=== PATIENT | female | born 1985 | race Hispanic/Latino ===

== ENCOUNTER 2025-05-18 21:47 | Emergency (ER) | payer SELFPAY ==
[~2025-05-18] VITALS: Ht 167.6 cm; Wt 127.9 kg
--- NOTE | 2025-05-18 21:51 | NUR ---
UA CUP PROVIDED
--- NOTE | 2025-05-18 22:34 | ERN ---
ED Note History of Present Illness Stated Complaint: HEADACHE, N/V Chief Complaint: Headache Time Seen by MD: 21:58 Dictation: This is a 39-year-old overweight female who came into the emergency room complaining of headache nausea vomitings and elevated blood pressure. Patient indicated that she had a fall a few weeks ago and was evaluated at [facility] and was told she had concussion. She also sustained a hematoma and a small laceration requiring audrey. She stated that she has had headaches off and on but since her concussion that aches have been quite frequent especially the last 3 days were intractable in nature. She also reported nausea and vomitings associated with it. No visual changes facial asymmetry slurred speech or any seizure activity. No motor wea kness. Temperature 98.2 heart rate 80 respirations 20 blood pressure 160/100 pulse oximetry 99% on room air She has a known history of hypertension Allergies: Coded Allergies: No Known Allergies (Unverified Allergy, Unknown, 05/18/25) Home Meds Active Scripts Ondansetron (Ondansetron Odt) 4 Mg Tab.rapdis, 4 MG PO Q6HPRN PRN for nausea, #16 TAB 0 Refills Prov:AV FRANZ MD 05/19/25 Butalb/Acetaminophen/Caffeine (Fioricet) 50 Mg-325 Mg-40 Mg Tab, 1 TAB PO [id number] PRN for pain for 5 Days, #10 TAB 0 Refills Prov:AV FRANZ MD 05/19/25 Past Medical History Past Medical History: Hypertension Surgical History: Appendectomy Family History: Negative Social History: Negative LMP: May 11, 2025 RN Note Reviewed/Agreed w/PFSH: Yes Review of System Dictation Constitutional: Negative for fever,chills, and weight loss Eyes: Negative for injury, pain,redness, and discharge ENT: Negative for injury,pain or swelling Cardiovascular: Negative for chest pain, palpitations, and edema Respiratory: Negative for shortness of breath, cough, and wheezing, Abdomen/GI: Negative for abdominal pain, positive for nausea, vomiting, diarrhea, and constipation Back: Negative for injury and pain : Negative for injury, bleeding and discharge MS/Extremity: Negative for injury and deformity Skin: Negative for rash, and discoloration Neuro: Positive for headache, denied weakness, numbness, tingling, and seizure Psych: Negative for suicide ideation, homicidal ideation, and hallucinations Initial Vital Sign VS Vital Signs Date Time Temp Pulse Resp B/P (MAP) Pulse Ox O2 Delivery O2 Flow Rate FiO2 05/18/25 21:48 98.2 80 20 160/100 99 Room Air 05/18/25 22:45 0 21 Physical Exam Dictation General: awake, alert, NAD looks uncomfortable because of the headache mild photophobia Head/Face: Normocephalic, atraumatic Eyes: PERRL, EOMI, vision at baseline ENT: oral cavity clear, TMs clear, no signs of infection Neck: Trachea midline, supple, no nuchal rigidity Cardiovascular: RRR, normal S1/S2, No MRGs, no JVD Respiratory: CTAB, no respiratory distress, No rales or wheezes Abdomen: Soft, non-tender, non-distended, normal bowel sounds, no guarding or rebound. Skin: Warm, dry, normal turgor, no rash MS/Extremity: Pulses equal, no cyanosis, neurovascular intact, FROM Neuro: COAx4, GCS 15, strength 5/5, CN 2-12 intact, normal cerebellar exam, normal gait, Psych: Normal behavior, mood, and affect normal Extremities-trace edema without any palpable cords, Homans sign is negative Results (Laboratory/Radiology) Laboratory/Radiology Laboratory Tests Test 05/19/25 01:10 White Blood Count 10.5 K/uL (4.8-10.8) Red Blood Count 3.76 MIL/uL (4.00-5.50) L Hemoglobin 11.6 g/dL (12.0-16.0) L Hematocrit 33.4 % (36-48) L Mean Corpuscular Volume 88.8 fL (79-99) Mean Corpuscular Hemoglobin 30.9 pg (27.0-33.0) Mean Corpuscular Hemoglobin Concent 34.7 g/dL (32.0-36.0) Red Cell Distribution Width 12.2 % (11.0-15.5) Platelet Count 317 K/uL (130-400) Mean Platelet Volume 8.7 fL (7.5-10.5) Immature Granulocyte % (Auto) 0.4 % (0-1) Neutrophils (%) (Auto) 79.1 % (40.0-77.0) H Lymphocytes (%) (Auto) 16.3 % (21.0-51.0) L Monocytes (%) (Auto) 3.6 % (3.0-13.0) Eosinophils (%) (Auto) 0.1 % (0.0-8.0) Basophils (%) (Auto) 0.5 % (0.0-5.0) Neutrophils # (Auto) 8.3 K/uL (1.8-7.7) H Lymphocytes # (Auto) 1.7 K/uL (1.0-4.8) Monocytes # (Auto) 0.4 K/uL (0.1-1.0) Eosinophils # (Auto) 0.01 K/uL (0.00-0.70) Basophils # (Auto) 0.05 K/uL (0.00-0.20) Absolute Immature Granulocyte (auto 0.04 K/uL (0-1) Nucleated Red Blood Cells 0.0 % (0.0-0.19) Sodium Level 137 mmol/L (136-145) Potassium Level 3.2 mmol/L (3.5-5.1) L Chloride Level 103 mmol/L (101-111) Carbon Dioxide Level 26 mmol/L (21-32) Blood Urea Nitrogen 9 mg/dL (7-18) Creatinine 0.5 mg/dL (0.5-1.0) Glomerular Filtration Rate Calc 122 mL/min (>90) Random Glucose 114 mg/dL (70-105) H Total Calcium 8.1 mg/dL (8.5-10.1) L Labs Reviewed?: Yes ED Course ED Course Orders Procedure Category Date Status Time Ondansetron 4mg Inj PHA 05/18/25 Complete (Zofran 4mg Inj) 23:00 Morphine 4mg Syg PHA 05/18/25 Complete (Morphine 4mg Syg) 23:00 Diphenhydramine Hcl PHA 05/18/25 Complete (Benadryl Inj) 23:00 0.9%Nacl 1000ml (Ns PHA 05/18/25 Complete 1000ml) 23:30 Hydralazine 20mg Inj PHA 05/18/25 Complete (Apresoline 20mg In 23:30 Ketorolac PHA 05/19/25 Complete Tromethamine 30mg/Ml 00:30 Cbc With Differential LAB 05/19/25 Complete 00:22 Basic Metabolic Panel LAB 05/19/25 Complete 00:22 Hydromorphone 0.5mg PHA 05/19/25 Complete Syg (Dilaudid 0.5mg 03:00 Current Medications Medications (Trade) Dose Ordered Sig/Sheri Route PRN Reason Start Time Stop Time Status Last Admin Dose Admin Diphenhydramine HCl (BENAdryl INJ) 25 mg ONCE ONCE IV 05/18/25 23:00 05/18/25 23:01 DC 05/18/25 22:52 Hydralazine HCl (APRESOLine 20MG INJ) 10 mg ONCE ONCE IV 05/18/25 23:30 05/18/25 23:31 DC 05/18/25 23:31 Hydromorphone HCl (DiLAUDid 0.5MG INJ) 0.5 mg ONCE ONCE IV 05/19/25 03:00 05/19/25 03:01 DC 05/19/25 02:47 Ketorolac Tromethamine (toRADol) 30 mg ONCE ONCE IV 05/19/25 00:30 05/19/25 00:31 DC 05/19/25 00:28 Morphine Sulfate (morPHINE 4MG SYG) 4 mg ONCE ONCE IVP 05/18/25 23:00 05/18/25 23:01 DC 05/18/25 22:52 Ondansetron HCl (zoFRAN 4MG INJ) 4 mg ONCE ONCE IVP 05/18/25 23:00 05/18/25 23:01 DC 05/18/25 22:52 Sodium Chloride 1,000 ml @ 0 mls/hr ONCE ONCE IV 05/18/25 23:30 05/18/25 23:31 DC 05/18/25 23:31 Vital Signs Date Time Temp Pulse Resp B/P (MAP) Pulse Ox O2 Delivery O2 Flow Rate FiO2 05/19/25 01:30 84 20 135/63 98 Room Air* 0 05/19/25 00:30 82 20 151/84 98 Room Air* 0 05/19/25 00:00 91 18 156/84 98 Room Air* 0 05/18/25 23:30 84 18 178/91 98 Room Air* 0 05/18/25 23:00 98.2 82 20 167/96 98 Room Air* 0 05/18/25 22:45 78 20 160/111 98 Room Air* 0 21 05/18/25 21:48 98.2 80 20 160/100 99 Room Air We will perform diagnostic labs, advanced imaging and administer medications according to the patient's complaint. Once the results are available, will review and personally interpreted the labs to rule out any acute life- threatening emergency the trach require immediate intervention and treatment. I will then re-evaluate the patient after treatment and diagnostic exams have return to determine whether the patient requires any further testing, can safely be discharged home or need further admission to hospital for additional treatment and evaluation. Labs reviewed CBC was with a normal limits hemoglobin was 11.6 BNP 7 was significant for hypokalemia at 3.2. Patient recently had a CT scan of the head and extensive workup which was on remarkable as a part of workup for a fall and laceration to the scalp. She had intractable headache and various medications were tried. 4:00 a.m. patient finally responded to Dilaudid 0.5 mg antiemetic. I had a long discussion with the patient and spouse about possibility of nonsteroidal/Tylenol withdrawal headaches due to chronic use. It is also conceivable that with the recent concussion, migraines could have been triggered. Patient feels much improved she will be discharged to home to follow up with her primary care physician locally Medical Decision Making MDM MDM: Differential diagnosis: Status migrainosus, cluster headache, tension headache, partial hemicrania, vascular headache Rationale: Tests considered and ordered secondary to shared decision making include: Previous outside records reviewed: Old ER visits. Risk of complication and/or morbidity or mortality of patient management: None Medications-Per medication reconciliation Need for hospitalization: Patient does not meet criteria for hospitalization. Need for emergency major/minor surgery: No There are no social concerns with this patient. Prescription drug management Prescriptions will include symptomatic care Patient's prior external medical records from other ER visits were reviewed by me as indicated. Prior testing and results from previous visits were reviewed. Prior tests were taken into account with medical decision making and resource utilization, independent historian/historians were used to obtain complete medical history. I independently interpreted the test that were performed, results were reviewed by me and considered findings on radiology if ordered. Medical management and examination interpretation discussions were had by me with other qualified healthcare professionals as indicated for the patient's care. DX & DISP Disposition: Discharge Departure Impression: Primary Impression: Headache syndrome Additional Impressions: Concussion, Hypertensive urgency Condition: Stable Scripts Ondansetron (Ondansetron Odt) 4 Mg Tab.rapdis 4 MG PO Q6HPRN PRN for nausea, #16 TAB 0 Refills Prov: AV FRANZ MD 05/19/25 Butalb/Acetaminophen/Caffeine (Fioricet) 50 Mg-325 Mg-40 Mg Tab 1 TAB PO [id number] PRN for pain for 5 Days, #10 TAB 0 Refills Prov: AV FRANZ MD 05/19/25 Additional Instructions: Patient and the caregiver have been informed of all the diagnostic tests and the imaging conducted during the today's visit to the emergency room and has verbalized understanding of the results I have personally reviewed and interpreted all diagnostic exams performed here in the ER today as well as the vital signs documented by the nursing staff. The patient is now being discharged to home and should follow up with the primary care physician or the specialist as directed by the ER staff. Follow-up with primary care provider in 1 to 2 days. Take medications as directed here in the emergency room. Okay to continue home medications unless otherwise discussed during your visit in the emergency room today. Return to your nearest emergency room if symptoms worsen or if there is no improvement. Call 911 if you need immediate assistance. Take Tylenol or Motrin [id number] as needed and if no contraindications are present. Increase oral hydration. A wound culture or urine culture was ordered here in the emergency room department please follow-up with primary care provider and advise them to get repeat ports from our facility. If you had any Josh wrap/splints that were applied here, please do not remove them until you see your primary care or specialty. Referrals: SELF,REFERRAL (PCP) AV FRANZ MD May 18, 2025 22:34
[2025-05-18 23:00] VITALS: TEMP 98.2
[2025-05-18] MEDS: 0.9%NACL 1000ML 1,000 ML IV ONE (23:31)
[2025-05-19 01:34] LABS: IMMATURE GRANULOCYTE ABSOLUTE 0.04 K/uL (0-1); NUCLEATED RED BLOOD CELLS 0.0 % (0.0-0.19); PLATELET COUNT (AUTO) 317 K/uL (130-400); RED BLOOD CELL COUNT(AUTO) 3.76 MIL/uL (4.00-5.50); RED CELL DISTRIBUTION WIDTH 12.2 % (11.0-15.5); WHITE BLOOD COUNT (AUTO) 10.5 K/uL (4.8-10.8)
[2025-05-19 01:40] LABS: CREATININE 0.5 mg/dL (0.5-1.0); GLOMERULAR FILTR. RATE CALC 122.0 mL/min (>90); GLUCOSE,RANDOM 114.0 mg/dL (70-105); SODIUM SERUM 137.0 mmol/L (136-145); UREA NITROGEN, BLOOD 9.0 mg/dL (7-18)
[2025-05-19] MEDS ORDERED: ONDA-243 PO (03:57)
[2025-05-19] MEDS ORDERED: FIORIT PO (03:57)
[2025-05-19 04:22] VITALS: BP 125/59; PULSE 90; RESP 20; O2SAT 96
== END 2025-05-19 04:30 | disposition home or self-care (01) ==
LOC: EDH 21:47
DX: S06.0X0A Concussion without loss of consciousness, initial encounter (principal); G44.89 Other headache syndrome; I16.0 Hypertensive urgency; I10 Essential (primary) hypertension; W18.39XA Other fall on same level, initial encounter; Y93.89 Activity, other specified; Y92.89 Other specified places as the place of occurrence of the external cause; Y99.8 Other external cause status
CPT/HCPCS: 99284; 96374; 96375 ×2; 96361; 80048; 85025; 36415; J1200; J7030; J0360; J2405; J2270; J1885; J1171